=== PATIENT | male | born 1945 | race Caucasian/White ===

== ENCOUNTER → 2016-09-30 | Outpatient (CLI) | payer MEDICARE, OTHER ==
--- NOTE | 2016-09-30 14:53 | Diagnostic Imaging Report ---
PROCEDURE: MRI lumbar spine. TECHNIQUE: Multiplanar, multisequence MRI of the lumbar spine was performed without contrast. INDICATION: Low back pain with left leg pain. No known injury. FINDINGS: There is normal height and alignment of the lumbar vertebral bodies. The L1-L2 level shows disc space narrowing with left posterolateral disc protrusion causing mass effect upon the left lateral recess but no focal nerve root impingement is seen. At L2-L3, there is disc space narrowing with mild diffuse bulging of the disc. There are mild degenerated facets which is causing mild bilateral lateral recess narrowing. At L3-L4, there is disc space narrowing with bulging of the disc. The degenerated facets are causing mild bilateral lateral recess narrowing. At L4-L5, there is bulging of the disc with degenerated facets. The facets are hypertrophied which is causing some right lateral recess and foraminal narrowing. L5-S1 shows no significant abnormality. IMPRESSION: There is diffuse degenerative disc and facet disease present causing lateral recess narrowing as described. Focal disc herniation is not seen at any level. Dictated by: Dictated on workstation # [id number]
== END ==
LOC: RAD 13:55 → EDBD 14:00
PROVIDERS: ATTEND Orthopaedic Surgery
DX: M54.16 Radiculopathy, lumbar region (principal)
CPT/HCPCS: 72148